=== PATIENT | female | born 1980 | race Caucasian/White ===

== ENCOUNTER → 2019-11-06 | Outpatient (CLI) | payer BC ==
[2004-04-05 05:48] VITALS: TEMP 97.3
[~2019-11-06] MED LIST: CITRUCEL PACKET1 PKT PO; FERROUS SULFAT325 MG PO; MIRALAX 17GM PK1 PKT PO; PERCOCET 5/321 UDTAB PO; PRENATAL VITAMI1 TA5 PO; PROTONIX20 MG PO
== END ==
LOC: MC.RAD 14:27
DX: Z12.31 Encounter for screening mammogram for malignant neoplasm of breast (principal)

== ENCOUNTER → 2020-12-30 | Outpatient (CLI) | payer BC ==
[2004-04-05 05:48] VITALS: TEMP 97.3
[~2020-12-30] MED LIST changes: +CELEXA 20MG20 MG/TAB PO
== END ==
LOC: MC.RAD 14:30
DX: Z12.31 Encounter for screening mammogram for malignant neoplasm of breast (principal)

== ENCOUNTER → 2021-02-13 | Outpatient (CLI) | payer BC ==
[~2021-02-13] VITALS: Ht 167.6 cm; Wt 70.7 kg
[2021-02-13 06:49] VITALS: BP 118/74; PULSE 76; TEMP 98.3
[2021-02-13 07:55] VITALS: BP 112/73; PULSE 73
== END ==
LOC: COL.RAD 06:30
DX: M51.27 Other intervertebral disc displacement, lumbosacral region (principal)
CPT/HCPCS: J3301

== ENCOUNTER → 2021-05-29 | Outpatient (CLI) | payer BC ==
[~2021-05-29] VITALS: Ht 167.6 cm; Wt 71.2 kg
[~2021-05-29] MED LIST changes: +ALDACTONE 100M100 MG PO
[2021-05-29 07:19] VITALS: BP 110/72; PULSE 85; TEMP 98
[2021-05-29 08:15] VITALS: BP 106/54; PULSE 72
== END ==
LOC: COL.RAD 06:54
DX: M51.27 Other intervertebral disc displacement, lumbosacral region (principal)
CPT/HCPCS: J3301

== ENCOUNTER → 2023-02-22 | Outpatient (CLI) | payer BC ==
[2004-04-05 05:48] VITALS: TEMP 97.3
[~2023-02-22] MED LIST changes: +CIPRODEX OT
== END ==
LOC: CANSCHCLI → MC.RAD 07:30
DX: Z12.31 Encounter for screening mammogram for malignant neoplasm of breast (principal)

== ENCOUNTER → 2023-04-04 | Outpatient (CLI) | payer BC ==
[2004-04-05 05:48] VITALS: TEMP 97.3
== END ==
LOC: MHCPAIN 08:33
DX: M47.817 Spondylosis without myelopathy or radiculopathy, lumbosacral region (principal); M54.50 Low back pain, unspecified
CPT/HCPCS: J0665

== ENCOUNTER → 2024-02-26 | Outpatient (CLI) | payer BC | LOC: MC.RAD 11:42 | DX: Z12.31 Encounter for screening mammogram for malignant neoplasm of breast (principal) ==